=== PATIENT | male | born 1960 | race Caucasian/White ===

== ENCOUNTER 2021-08-29 07:37 | Emergency (ER) | payer MEDICARE, BC ==
[~2021-08-29] VITALS: Ht 188 cm; Wt 136.1 kg
[2021-08-29] MEDS ORDERED: OXYMETAZOLINE HCL 0.05% NAS 1 SPRAY BTL ONE (08:00)
[2021-08-29 08:42] VITALS: BP 135/70
== END 2021-08-29 09:29 | disposition home or self-care (01) ==
LOC: ER 07:57
DX: R04.0 Epistaxis (principal); I10 Essential (primary) hypertension; E78.5 Hyperlipidemia, unspecified; Z85.528 Personal history of other malignant neoplasm of kidney
CPT/HCPCS: 99283

== ENCOUNTER 2024-09-15 08:16 | Emergency (ER) | payer MEDICARE, BC ==
[~2024-09-15] VITALS: Ht 188 cm; Wt 129.3 kg
[2024-09-15 08:18] VITALS: PULSE 93; RESP 20; TEMP 98.2
[2024-09-15] MEDS ORDERED: TYLENOL325 MG PO (08:55)
[2024-09-15 09:25] VITALS: PULSE 80; RESP 20; TEMP 98.4; O2SAT 96
== END 2024-09-15 09:23 | disposition home or self-care (01) ==
LOC: FSED 08:19
DX: S90.121A Contusion of right lesser toe(s) without damage to nail, initial encounter (principal); S90.31XA Contusion of right foot, initial encounter; W20.8XXA Other cause of strike by thrown, projected or falling object, initial encounter; Y92.89 Other specified places as the place of occurrence of the external cause; I10 Essential (primary) hypertension; E78.5 Hyperlipidemia, unspecified; Z85.528 Personal history of other malignant neoplasm of kidney
CPT/HCPCS: 99284

== ENCOUNTER → 2024-10-10 | Day surgery (SDC) | payer MEDICARE, BC ==
[~2024-10-10] MED LIST: AMLODIPINE BESY10 MG PO; AZELASTINE137 MCG/0.; ELIQUIS2.5 MG PO; FENTANYL CITRATE/PF 100MCG/2 ML INJ ONE; FLUOCINONIDE15 GM; FUROSEMIDE40 MG PO; LIDOCAINE HCL 2% LOCAL INJ 5 ML SDV VIAL INJ ONE; MIDAZOLAM HCL 2 MG/2 ML VIAL ONE; OMEPRAZOLE40 MG PO; PROPOFOL IV EMULSION 10 MG/ML 20 ML VIAL ONE; TYLENOL325 MG PO; ZETIA10 MG PO; ZYRTEC10 M3 PO
[2024-10-10] MEDS: LACTATED RINGER'S 1,000 ML ONE (06:23)
[2024-10-10 07:11] VITALS: TEMP 98.4
[2024-10-10 07:40] VITALS: BP 139/90; PULSE 69; RESP 16; O2SAT 97
== END | disposition home or self-care (01) ==
LOC: OR 05:21
PROVIDERS: ATTEND Specialist
DX: M16.11 Unilateral primary osteoarthritis, right hip (principal); G47.33 Obstructive sleep apnea (adult) (pediatric); I10 Essential (primary) hypertension; I25.10 Atherosclerotic heart disease of native coronary artery without angina pectoris; K21.9 Gastro-esophageal reflux disease without esophagitis; N28.9 Disorder of kidney and ureter, unspecified; Z88.6 Allergy status to analgesic agent; Z79.02 Long term (current) use of antithrombotics/antiplatelets; Z79.899 Other long term (current) drug therapy; Z95.2 Presence of prosthetic heart valve; Z86.718 Personal history of other venous thrombosis and embolism; Z90.5 Acquired absence of kidney
CPT/HCPCS: 20610; 77002; J2003; J2704; J7121; J2250

== ENCOUNTER 2024-11-11 17:08 | Emergency (ER) | payer MEDICARE, BC ==
[~2024-11-11 17:08] MED LIST changes: -FENTANYL CITRATE/PF 100MCG/2 ML INJ ONE; -LIDOCAINE HCL 2% LOCAL INJ 5 ML SDV VIAL INJ ONE; -MIDAZOLAM HCL 2 MG/2 ML VIAL ONE; -PROPOFOL IV EMULSION 10 MG/ML 20 ML VIAL ONE
[2024-11-11 17:13] VITALS: PULSE 95; RESP 18; TEMP 97.7
[2024-11-11] MEDS ORDERED: PROBIOTIC & AC1 EACH PO (17:42)
[2024-11-11] MEDS: CLINDAMYCIN 600MG / 50ML 50 ML IV ONE (17:59)
[2024-11-11] MEDS: Clindamycin INJ 300 MG/50 ML 50 ML IV ONE (17:59)
[2024-11-11] MEDS ORDERED: DOXYCYCLINE HY100 MG PO (18:11)
[2024-11-11 18:34] VITALS: BP 138/99; PULSE 84; RESP 18; TEMP 98.1; O2SAT 94
== END 2024-11-11 18:35 | disposition home or self-care (01) ==
LOC: FSED 17:14
DX: L03.116 Cellulitis of left lower limb (principal); M79.89 Other specified soft tissue disorders; I10 Essential (primary) hypertension; E78.5 Hyperlipidemia, unspecified; Z85.528 Personal history of other malignant neoplasm of kidney; Z95.4 Presence of other heart-valve replacement
CPT/HCPCS: 80053; 85025; 99283

== ENCOUNTER 2024-12-04 10:21 | Emergency (ER) | payer MEDICARE, BC ==
[~2024-12-04] VITALS: Ht 188 cm; Wt 135.6 kg
[~2024-12-04 10:21] MED LIST changes: +DOXYCYCLINE HY100 MG PO; +PROBIOTIC & AC1 EACH PO
[2024-12-04 11:01] VITALS: TEMP 98.1
[2024-12-04] MEDS ORDERED: CEFTRIAXONE 1 GM VIAL IV ONE (12:15)
[2024-12-04] MEDS: SODIUM CHLORIDE 0.9% 1000ML 1,000 ML IV ONE (12:28)
[2024-12-04 13:26] VITALS: PULSE 77; RESP 20
[2024-12-04] MEDS ORDERED: AMOXICILLIN875 MG PO (13:33)
[2024-12-04 13:46] VITALS: BP 168/98; O2SAT 95
== END 2024-12-04 13:45 | disposition home or self-care (01) ==
LOC: FSED 10:29
DX: L03.116 Cellulitis of left lower limb (principal); N28.9 Disorder of kidney and ureter, unspecified; I10 Essential (primary) hypertension; E78.5 Hyperlipidemia, unspecified; Z85.528 Personal history of other malignant neoplasm of kidney
CPT/HCPCS: 73630; 99283; J7030; J0696